=== PATIENT | female | born 1975 ===

== ENCOUNTER 2020-06-18 20:26 | Inpatient (IN) ==
[2020-06-18] MEDS ORDERED: SODIUM CHLORIDE 0.9% 1,000 ML IV STA (20:54)
[2020-06-18] MEDS ORDERED: PANTOPRAZOLE INJ 80 MG in SODIUM CHLORIDE 0.9% 100 ML IV ONE (20:54)
[2020-06-18] MEDS ORDERED: ONDANSETRON 4 MG/2 ML VIAL IV STA (20:54)
[2020-06-18 21:01] LABS: Basophils % 0.5 % (0.0-0.8); Eosinophils # 0.1 10*3/uL (0.0-0.87); Eosinophils % 2.4 % (0.00-10.9); Hematocrit 28.5 VOL% (35.7-47.0); Hemoglobin 10.2 GM/DL (12.0-16.0); Immature Granulocytes % 0.3 %; Immature Granulocytes Absolute 0.01 #; Lymphocytes # 1.9 10*3/uL (1.4-4.0); Lymphocytes % 50.3 % (21.3-54.2); Mean Corpuscular HGB Conc 35.8 GM/DL (32-36); Mean Corpuscular Volume 101.1 FL (87-102); Mean Platelet Volume 10.5 FL (9.6-12.0); Monocytes % 11.1 % (1.7-12.7); Neutrophils % 35.4 % (38.7-73.9); Platelet Count 49 T/CUMM (130-400); Red Blood Count 2.82 MC/CUMM (3.8-5.5); Red Cell Distribution Width 12.9 % (9.3-17.3); White Blood Count 3.7 T/CUMM (4-12)
[2020-06-18] MEDS ORDERED: THIAMINE INJ 100 MG, FOLIC ACID INJ 1 MG, MAGNESIUM SULF INJ 2 GM, MULTIVITAMIN INJ 10 ... IV ONE (21:02)
[2020-06-18 21:08] LABS: INR 1.4; PT Patient Result 15.2 SECS (9.8-11.9); Partial Thromboplastin Time 38.5 SECS (23.9-33.8)
[2020-06-18 21:17] LABS: Albumin 2.3 G/DL (3.4-5.0); Bilirubin,Total 1.9 MG/DL (0.2-1.0); Osmolality,Calculated 244.1 MOS/KG (273-304); Total Protein 6.5 G/DL (6.4-8.3)
[2020-06-18 21:26] LABS: Eosinophils 1 % (0-10); Lymphocytes 44 % (20-55); Microcytosis 1+; Platelet Estimate Decreased; Segmented Neutrophils 49 % (50-85); Total Cells Counted 100
[2020-06-18] MEDS ORDERED: PANTOPRAZOLE 40 MG VIAL IV ONE ×2 (21:39→21:42)
[2020-06-18] MEDS ORDERED: PANTOPRAZOLE INJ 200 MG in SODIUM CHLORIDE 0.9% 250 ML IV SCH (22:00)
[2020-06-18] MEDS ORDERED: OCTREOTIDE 100 MCG/ML SYRINGE IV STA (23:33)
[2020-06-18] MEDS ORDERED: PROMETHAZINE 25 MG/1 ML VIAL IM PRN (23:33)
[2020-06-18] MEDS ORDERED: ONDANSETRON 4 MG/2 ML VIAL IV PRN (23:33)
[2020-06-18] MEDS ORDERED: ALBUTEROL 2.5 MG/3 ML NEB RESP TX PRN (23:33)
[2020-06-18] MEDS ORDERED: THIAMINE INJ 100 MG, FOLIC ACID INJ 1 MG, MAGNESIUM SULF INJ 2 GM, MULTIVITAMIN INJ 10 ... IV SCH (23:45)
[2020-06-18] MEDS ORDERED: SODIUM CHLORIDE 0.9% 1,000 ML IV SCH (23:45)
[2020-06-19 00:03] LABS: Apearance,Urine CLEAR (Clear); Bacteria,Urine Moderate /HPF (Few); Bilirubin,Urine Negative (Negative); Blood, Urine Small mg/dL (Negative); Glucose,Urine (UA) Negative (Negative); Ketones,Urine Negative (Negative); Mucus,Urine Occasional /LPF (Occasional); Nitrite,Urine Negative (Negative); Protein,Urine Negative; RBC,Urine 2 /HPF (0-4); Squamous Epithelial Cell,Urine Occasional /HPF (0-10); Urine Color Yellow (Yellow); Urine Specific Gravity 1.003 (1.001-1.035); WBC,Urine 1 /HPF (0-6)
[2020-06-19] MEDS ORDERED: SODIUM CHLORIDE 0.9% 1,000 ML IV STA (00:54)
[2020-06-19] MEDS ORDERED: SODIUM CHLORIDE 0.9% 1,000 ML IV PRN ×2 (01:02→02:31)
[2020-06-19] MEDS: OCTREOTIDE 500 MCG in SODIUM CHLORIDE 0.9% 100 ML IV SCH ×3 (01:54→21:28)
[2020-06-19 02:31] LABS: Basophils % 0.7 % (0.0-0.8); Eosinophils # 0.1 10*3/uL (0.0-0.87); Eosinophils % 2.5 % (0.00-10.9); Hemoglobin 10.9 GM/DL (12.0-16.0); Immature Granulocytes % 0.4 %; Immature Granulocytes Absolute 0.01 #; Lymphocytes # 1.2 10*3/uL (1.4-4.0); Lymphocytes % 44.6 % (21.3-54.2); Mean Corpuscular HGB Conc 35.2 GM/DL (32-36); Mean Corpuscular Volume 102.3 FL (87-102); Mean Platelet Volume 9.9 FL (9.6-12.0); Monocytes % 14.5 % (1.7-12.7); Neutrophils % 37.3 % (38.7-73.9); Red Blood Count 3.03 MC/CUMM (3.8-5.5); Red Cell Distribution Width 12.8 % (9.3-17.3); White Blood Count 2.8 T/CUMM (4-12)
[2020-06-19 02:34] LABS: Platelet Count 42 T/CUMM (130-400)
[2020-06-19] MEDS: LACTATED RINGERS 1,000 ML IV SCH ×2 (02:45→12:28)
[2020-06-19 06:01] LABS: Anisocytosis 2+; Band Neutrophils 4 % (0-10); Eosinophils 3 % (0-10); Lymphocytes 47 % (20-55); Macrocytosis 2+; Platelet Estimate Decreased; Segmented Neutrophils 32 % (50-85); Total Cells Counted 100
[2020-06-19 06:20] LABS: Basophils % 0.4 % (0.0-0.8); Eosinophils % 1.7 % (0.00-10.9); Hematocrit 27.4 VOL% (35.7-47.0); Hemoglobin 9.5 GM/DL (12.0-16.0); Lymphocytes # 0.8 10*3/uL (1.4-4.0); Lymphocytes % 35.3 % (21.3-54.2); Mean Corpuscular HGB Conc 34.7 GM/DL (32-36); Mean Corpuscular Volume 103.4 FL (87-102); Mean Platelet Volume 9.9 FL (9.6-12.0); Monocytes % 11.1 % (1.7-12.7); Neutrophils % 51.5 % (38.7-73.9); Red Blood Count 2.65 MC/CUMM (3.8-5.5); Red Cell Distribution Width 13.3 % (9.3-17.3); White Blood Count 2.4 T/CUMM (4-12)
[2020-06-19 06:24] LABS: Platelet Count 97 T/CUMM (130-400)
[2020-06-19] MEDS: FOLIC ACID IV SCH ×3 (06:59→21:27)
[2020-06-19] MEDS: [UNRECOGNIZED DRUG - OTHER] IV SCH ×3 (06:59→21:27)
[2020-06-19] MEDS: MAGNESIUM IV SCH ×3 (06:59→21:27)
[2020-06-19] MEDS: THIAMINE 100 MG IV SCH ×3 (06:59→21:27)
[2020-06-19 09:17] LABS: INR 1.3; PT Patient Result 13.6 SECS (9.8-11.9)
[2020-06-19 09:29] LABS: Albumin 2.5 G/DL (3.4-5.0); Bilirubin,Total 2.4 MG/DL (0.2-1.0); Calcium 7.4 MG/DL (8.5-10.1)
[2020-06-19] MEDS: PANTOPRAZOLE 40 MG VIAL IV SCH ×2 (09:40→20:15)
[2020-06-19 15:45] LABS: Hepatitis B Core IgM Quant 0.15 Index; Hepatitis B Surface Ag Quant < 0.10 Index; Hepatitis B Surface Ag Result Negative (Negative); Hepatitis C Virus Ab Quant 0.19 Index; Hepatitis C Virus Ab Result Negative (Negative)
[2020-06-19] MEDS: LORazepam 2 MG/1 ML VIAL IV SCH ×2 (17:36→23:27)
[2020-06-19] MEDS: DEXTROSE 5% NACL 0.45% 1,000 ML IV SCH (17:38)
[2020-06-20 05:12] LABS: Basophils % 0.4 % (0.0-0.8); Eosinophils % 1.2 % (0.00-10.9); Hematocrit 25.7 VOL% (35.7-47.0); Hemoglobin 8.5 GM/DL (12.0-16.0); Immature Granulocytes % 0.4 %; Immature Granulocytes Absolute 0.01 #; Lymphocytes % 38.9 % (21.3-54.2); Mean Corpuscular HGB Conc 33.1 GM/DL (32-36); Mean Platelet Volume 9.8 FL (9.6-12.0); Monocytes % 19.4 % (1.7-12.7); Neutrophils % 39.7 % (38.7-73.9); Platelet Count 63 T/CUMM (130-400); Red Blood Count 2.38 MC/CUMM (3.8-5.5); White Blood Count 2.5 T/CUMM (4-12)
[2020-06-20 05:30] LABS: Band Neutrophils 1 % (0-10); Lymphocytes 36 % (20-55); Segmented Neutrophils 48 % (50-85); Total Cells Counted 100
[2020-06-20 05:31] LABS: Hypochromasia 1+; Macrocytosis 1+; Platelet Estimate Decreased
[2020-06-20 05:33] LABS: Calcium 7.3 MG/DL (8.5-10.1); Osmolality,Calculated 272.8 MOS/KG (273-304)
[2020-06-20] MEDS: LORazepam 2 MG/1 ML VIAL IV SCH ×3 (05:57→17:15)
[2020-06-20] MEDS: DEXTROSE 5% NACL 0.45% 1,000 ML IV SCH (06:19)
[2020-06-20] MEDS: PANTOPRAZOLE 40 MG VIAL IV SCH ×2 (09:49→21:31)
[2020-06-20] MEDS: FOLIC ACID IV SCH ×2 (09:54→16:42)
[2020-06-20] MEDS: THIAMINE 100 MG IV SCH ×2 (09:54→16:42)
[2020-06-20] MEDS: [UNRECOGNIZED DRUG - OTHER] IV SCH ×2 (09:54→16:42)
[2020-06-20] MEDS: MAGNESIUM IV SCH ×2 (09:54→16:42)
[2020-06-20] MEDS ORDERED: propofoL 200 MG/20 ML VIAL IV ONE (10:00)
[2020-06-20] MEDS ORDERED: LIDOCAINE 2% 5 ML VIAL ONE (10:00)
[2020-06-20] MEDS: OCTREOTIDE 500 MCG in SODIUM CHLORIDE 0.9% 100 ML IV SCH (12:06)
[2020-06-20] MEDS: PIPERACILLIN/TAZOBACTAM 3,375 MG in SODIUM CHLORIDE 0.9% 100 ML IV SCH ×2 (14:25→21:33)
[2020-06-21] MEDS ORDERED: SODIUM CHLORIDE 0.9% 500 ML IV ONE (00:58)
[2020-06-21] MEDS: THIAMINE 100 MG IV SCH ×2 (02:02→10:13)
[2020-06-21] MEDS: FOLIC ACID IV SCH ×2 (02:02→10:13)
[2020-06-21] MEDS: MAGNESIUM IV SCH ×2 (02:02→10:13)
[2020-06-21] MEDS: [UNRECOGNIZED DRUG - OTHER] IV SCH ×2 (02:02→10:13)
[2020-06-21] MEDS: LORazepam 2 MG/1 ML VIAL IV SCH ×4 (02:24→18:03)
[2020-06-21 05:57] LABS: Basophils % 0.4 % (0.0-0.8); Eosinophils % 1.3 % (0.00-10.9); Hematocrit 22.4 VOL% (35.7-47.0); Hemoglobin 7.7 GM/DL (12.0-16.0); Immature Granulocytes % 0.4 %; Immature Granulocytes Absolute 0.01 #; Lymphocytes # 0.8 10*3/uL (1.4-4.0); Lymphocytes % 33.3 % (21.3-54.2); Mean Corpuscular HGB Conc 34.4 GM/DL (32-36); Mean Corpuscular Volume 106.7 FL (87-102); Mean Platelet Volume 10.5 FL (9.6-12.0); Monocytes % 18.6 % (1.7-12.7); Platelet Count 44 T/CUMM (130-400); Red Cell Distribution Width 13.5 % (9.3-17.3); White Blood Count 2.3 T/CUMM (4-12)
[2020-06-21] MEDS ORDERED: SODIUM CHLORIDE 0.9% 1,000 ML IV PRN (06:26)
[2020-06-21 06:29] LABS: Eosinophils 1 % (0-10); Hypochromasia 2+; Lymphocytes 21 % (20-55); Ovalocytes Slight; Platelet Estimate Decreased; Segmented Neutrophils 68 % (50-85); Total Cells Counted 100
[2020-06-21 06:30] LABS: Macrocytosis Slight; Osmolality,Calculated 284.7 MOS/KG (273-304)
[2020-06-21 06:35] LABS: Calcium 5.1 MG/DL (8.5-10.1)
[2020-06-21 09:12] LABS: Albumin 1.4 G/DL (3.4-5.0); Bilirubin,Direct 1.03 MG/DL (0.0-0.20); Bilirubin,Indirect 0.6 MG/DL (0.0-1.0); Bilirubin,Total 1.6 MG/DL (0.2-1.0); Total Protein 3.9 G/DL (6.4-8.3)
[2020-06-21] MEDS: PANTOPRAZOLE 40 MG VIAL IV SCH (10:07)
[2020-06-21] MEDS: PIPERACILLIN/TAZOBACTAM 3,375 MG in SODIUM CHLORIDE 0.9% 100 ML IV SCH ×3 (10:11→21:51)
[2020-06-21] MEDS ORDERED: POTASSIUM CHLORIDE 20 MEQ TABLET PO ONE (12:00)
[2020-06-21] MEDS ORDERED: FAMOTIDINE INJ 40 MG in SODIUM CHLORIDE 0.9% 100 ML IV SCH (13:30)
[2020-06-21] MEDS ORDERED: CALCIUM GLUCONATE 2,000 MG in SODIUM CHLORIDE 0.9% 100 ML IV ONE (13:30)
[2020-06-21] MEDS: CALCIUM (CARBONATE)/VITAMIN D 500 MG-200 UNIT TABLET PO SCH ×3 (13:46→21:50)
[2020-06-21] MEDS: DEXTROSE 5% NACL 0.45% 1,000 ML IV SCH (15:36)
[2020-06-21] MEDS ORDERED: POTASSIUM CHLORIDE 20 MEQ TABLET PO SCH (21:00)
[2020-06-21] MEDS ORDERED: PANTOPRAZOLE 40 MG TABLET PO SCH (21:00)
[2020-06-21] MEDS: FAMOTIDINE 20 MG TABLET PO SCH (21:50)
[2020-06-21] MEDS: POTASSIUM CHLORIDE 20 MEQ TABLET PO SCH (21:51)
[2020-06-22] MEDS: LORazepam 2 MG/1 ML VIAL IV SCH ×4 (03:45→16:52)
[2020-06-22] MEDS: [UNRECOGNIZED DRUG - OTHER] IV SCH ×3 (03:47→13:49)
[2020-06-22] MEDS: FOLIC ACID IV SCH ×3 (03:47→13:49)
[2020-06-22] MEDS: MAGNESIUM IV SCH ×3 (03:47→13:49)
[2020-06-22] MEDS: THIAMINE 100 MG IV SCH ×3 (03:47→13:49)
[2020-06-22] MEDS: PIPERACILLIN/TAZOBACTAM 3,375 MG in SODIUM CHLORIDE 0.9% 100 ML IV SCH ×2 (06:23→15:39)
[2020-06-22 06:38] LABS: Basophils % 1.3 % (0.0-0.8); Eosinophils # 0.1 10*3/uL (0.0-0.87); Eosinophils % 4.7 % (0.00-10.9); Hematocrit 37.1 VOL% (35.7-47.0); Hemoglobin 12.8 GM/DL (12.0-16.0); Mean Corpuscular HGB Conc 34.5 GM/DL (32-36); Mean Corpuscular Volume 99.2 FL (87-102); Mean Platelet Volume 10.6 FL (9.6-12.0); Monocytes % 15.8 % (1.7-12.7); Neutrophils % 45.2 % (38.7-73.9); Platelet Count 46 T/CUMM (130-400); Red Blood Count 3.74 MC/CUMM (3.8-5.5); Red Cell Distribution Width 16.9 % (9.3-17.3)
[2020-06-22 07:08] LABS: Calcium 8.6 MG/DL (8.5-10.1); Osmolality,Calculated 267.2 MOS/KG (273-304)
[2020-06-22 07:11] LABS: Ferritin 881.4 ng/ml (8-252)
[2020-06-22 07:18] LABS: Eosinophils 12 % (0-10); Lymphocytes 29 % (20-55); Platelet Estimate Decreased; Segmented Neutrophils 49 % (50-85); Total Cells Counted 100
[2020-06-22 07:18] LABS: Folate 12.9 NG/ML (5.4-24.0)
[2020-06-22 07:19] LABS: Hypochromasia 1+; Microcytosis Slight
[2020-06-22] MEDS: CALCIUM (CARBONATE)/VITAMIN D 500 MG-200 UNIT TABLET PO SCH ×3 (08:31→17:28)
[2020-06-22] MEDS: FAMOTIDINE 20 MG TABLET PO SCH (08:31)
[2020-06-22] MEDS: POTASSIUM CHLORIDE 20 MEQ TABLET PO SCH (08:31)
[2020-06-22 16:17] VITALS: BP 105/68
== END 2020-06-22 19:03 | disposition home or self-care (01) | DRG 253 ==
LOC: EDUNIT# → EDBD → N.ED 20:26 → SUATTDRO 23:33 → N.EDINP 23:33 → N.3E 06-19 11:21 → N.4E 06-21 15:30 → UNDODISIN 06-22 18:37
PROVIDERS: ADMIT Internal Medicine; ATTEND Hospitalist

== ENCOUNTER 2021-04-11 20:45 | Inpatient (IN) ==
[2021-04-12] MEDS ORDERED: GLUCAGON 1 MG VIAL IM PRN ×2 (00:02→01:00)
[2021-04-12] MEDS ORDERED: DEXTROSE 50% 25 GM/50 ML VIAL IV PRN ×2 (00:02→01:00)
[2021-04-12] MEDS ORDERED: cefTRIAXone 1,000 MG in SODIUM CHLORIDE 0.9% 100 ML IV SCH (01:00)
[2021-04-12 02:04] LABS: Albumin 2.1 G/DL (3.4-5.0); Bilirubin,Total 3.2 MG/DL (0.2-1.0); Calcium 7.4 MG/DL (8.5-10.1); Osmolality,Calculated 277.5 MOS/KG (273-304); Potassium 3.7 MMOL/L (3.5-5.1); Total Protein 6.3 G/DL (6.4-8.2)
[2021-04-12 02:09] LABS: Basophils % 0.6 % (0.0-0.8); Eosinophils # 0.1 10*3/uL (0.0-0.87); Eosinophils % 2.1 % (0.00-10.9); Hematocrit 29.8 VOL% (35.7-47.0); Immature Granulocytes % 0.3 %; Immature Granulocytes Absolute 0.01 #; Lymphocytes # 0.9 10*3/uL (1.4-4.0); Lymphocytes % 25.1 % (21.3-54.2); Mean Corpuscular HGB Conc 33.6 GM/DL (32-36); Mean Corpuscular Volume 109.2 FL (87-102); Mean Platelet Volume 10.3 FL (9.6-12.0); Monocytes % 11.5 % (1.7-12.7); Neutrophils % 60.4 % (38.7-73.9); Platelet Count 41 T/CUMM (130-400); Red Blood Count 2.73 MC/CUMM (3.8-5.5); Red Cell Distribution Width 15.8 % (9.3-17.3); White Blood Count 3.4 T/CUMM (4-12)
[2021-04-12 02:15] LABS: INR 1.4; PT Patient Result 15.6 SECS (10.5-12.0); Partial Thromboplastin Time 31.2 SECS (23.9-33.8)
[2021-04-12] MEDS: INSULIN LISPRO 100 UNIT/ML SUBCUT SCH ×4 (08:39→23:18)
[2021-04-12] MEDS ORDERED: PNEUMOCOCCAL VACCINE (23 VALENT) 0.5 ML VIAL IM ONE (09:00)
[2021-04-12] MEDS: PANTOPRAZOLE 40 MG TABLET PO SCH (10:39)
[2021-04-12] MEDS: LACTULOSE 20 GM/30 ML UDCUP PO SCH (10:39)
[2021-04-12] MEDS: ACETAMINOPHEN 325 MG TABLET PO SCH ×3 (10:40→20:56)
[2021-04-12] MEDS: MIDODRINE 5 MG TABLET PO SCH ×3 (10:40→20:56)
[2021-04-12] MEDS: FOLIC ACID 1 MG TABLET PO SCH (10:40)
[2021-04-12] MEDS: POTASSIUM CHLORIDE 20 MEQ TABLET PO SCH (10:41)
[2021-04-12] MEDS: FUROSEMIDE 40 MG TABLET PO SCH (10:41)
[2021-04-12] MEDS: THIAMINE 100 MG TABLET PO SCH (10:41)
[2021-04-12] MEDS: ONDANSETRON 4 MG/2 ML VIAL IV PRN (13:06)
[2021-04-12] MEDS: cefTRIAXone 1,000 MG in SODIUM CHLORIDE 0.9% 100 ML IV SCH (20:56)
[2021-04-13 09:07] LABS: Basophils % 0.7 % (0.0-0.8); Eosinophils # 0.1 10*3/uL (0.0-0.87); Eosinophils % 2.5 % (0.00-10.9); Lymphocytes % 25.5 % (21.3-54.2); Mean Corpuscular HGB Conc 33.3 GM/DL (32-36); Mean Corpuscular Volume 108.7 FL (87-102); Mean Platelet Volume 10.8 FL (9.6-12.0); Monocytes % 11.3 % (1.7-12.7); Platelet Count 40 T/CUMM (130-400); Red Blood Count 2.76 MC/CUMM (3.8-5.5); Red Cell Distribution Width 15.9 % (9.3-17.3); White Blood Count 4.1 T/CUMM (4-12)
[2021-04-13 09:25] LABS: Albumin 1.9 G/DL (3.4-5.0); Bilirubin,Total 2.1 MG/DL (0.2-1.0); Calcium 7.6 MG/DL (8.5-10.1); Eosinophils 5 % (0-10); Hypochromasia Slight; Lymphocytes 31 % (20-55); Microcytosis Slight; Nucleated Red Blood Cells 1 (0-5); Osmolality,Calculated 282.1 MOS/KG (273-304); Platelet Estimate Decreased; Potassium 3.5 MMOL/L (3.5-5.1); Segmented Neutrophils 59 % (50-85); Total Cells Counted 100; Total Protein 5.9 G/DL (6.4-8.2)
[2021-04-13 09:27] LABS: INR 1.5; Partial Thromboplastin Time 32.1 SECS (23.9-33.8)
[2021-04-13] MEDS: THIAMINE 100 MG TABLET PO SCH (11:15)
[2021-04-13] MEDS: PANTOPRAZOLE 40 MG TABLET PO SCH (11:15)
[2021-04-13] MEDS: MIDODRINE 5 MG TABLET PO SCH ×3 (11:15→20:16)
[2021-04-13] MEDS: FUROSEMIDE 40 MG TABLET PO SCH (11:15)
[2021-04-13] MEDS: LACTULOSE 20 GM/30 ML UDCUP PO SCH (11:16)
[2021-04-13] MEDS: ACETAMINOPHEN 325 MG TABLET PO SCH ×3 (11:16→20:16)
[2021-04-13] MEDS: FOLIC ACID 1 MG TABLET PO SCH (11:16)
[2021-04-13] MEDS: POTASSIUM CHLORIDE 20 MEQ TABLET PO SCH (11:16)
[2021-04-13] MEDS: INSULIN LISPRO 100 UNIT/ML SUBCUT SCH ×4 (11:17→21:16)
[2021-04-13] MEDS: PHYTONADIONE 5 MG/5 ML ORAL.SYR PO SCH (17:04)
[2021-04-13 17:30] LABS: Neutrophils,Peritoneal Fluid 14 %; RBC,Peritoneal Fluid < 1 T/CUMM
[2021-04-13] MEDS: cefTRIAXone 1,000 MG in SODIUM CHLORIDE 0.9% 100 ML IV SCH (20:16)
[2021-04-13] MEDS: SPIRONOLACTONE 50 MG TABLET PO SCH (21:16)
[2021-04-14 05:18] LABS: Basophils % 0.6 % (0.0-0.8); Eosinophils # 0.1 10*3/uL (0.0-0.87); Eosinophils % 2.8 % (0.00-10.9); Hematocrit 26.9 VOL% (35.7-47.0); Hemoglobin 9.2 GM/DL (12.0-16.0); Immature Granulocytes % 0.3 %; Immature Granulocytes Absolute 0.01 #; Lymphocytes # 1.1 10*3/uL (1.4-4.0); Mean Corpuscular HGB Conc 34.2 GM/DL (32-36); Mean Corpuscular Volume 107.2 FL (87-102); Mean Platelet Volume 10.5 FL (9.6-12.0); Monocytes % 12.5 % (1.7-12.7); Neutrophils % 53.8 % (38.7-73.9); Red Blood Count 2.51 MC/CUMM (3.8-5.5); Red Cell Distribution Width 15.8 % (9.3-17.3); White Blood Count 3.6 T/CUMM (4-12)
[2021-04-14 05:21] LABS: INR 1.5; PT Patient Result 16.9 SECS (10.5-12.0); Partial Thromboplastin Time 34.2 SECS (23.9-33.8)
[2021-04-14 05:31] LABS: Platelet Count 32 T/CUMM (130-400)
[2021-04-14 05:45] LABS: Albumin 1.9 G/DL (3.4-5.0); Bilirubin,Total 1.9 MG/DL (0.2-1.0); Calcium 7.4 MG/DL (8.5-10.1); Potassium 3.3 MMOL/L (3.5-5.1); Total Protein 5.5 G/DL (6.4-8.2)
[2021-04-14 05:46] LABS: Eosinophils 3 % (0-10); Hypochromasia 1+; Lymphocytes 27 % (20-55); Microcytosis 1+; Platelet Estimate Decreased; Segmented Neutrophils 65 % (50-85); Total Cells Counted 100
[2021-04-14] MEDS: PHYTONADIONE 5 MG/5 ML ORAL.SYR PO SCH (09:18)
[2021-04-14] MEDS: LACTULOSE 20 GM/30 ML UDCUP PO SCH (09:18)
[2021-04-14] MEDS: MIDODRINE 5 MG TABLET PO SCH ×3 (09:19→22:48)
[2021-04-14] MEDS: PANTOPRAZOLE 40 MG TABLET PO SCH (09:19)
[2021-04-14] MEDS: ACETAMINOPHEN 325 MG TABLET PO SCH ×3 (09:19→22:52)
[2021-04-14] MEDS: THIAMINE 100 MG TABLET PO SCH (09:19)
[2021-04-14] MEDS: SPIRONOLACTONE 50 MG TABLET PO SCH ×2 (09:19→22:48)
[2021-04-14] MEDS: POTASSIUM CHLORIDE 20 MEQ TABLET PO SCH (09:19)
[2021-04-14] MEDS: FUROSEMIDE 20 MG TABLET PO SCH (09:19)
[2021-04-14] MEDS: FOLIC ACID 1 MG TABLET PO SCH (09:19)
[2021-04-14] MEDS ORDERED: SODIUM CHLORIDE 0.9% 1,000 ML IV PRN (09:46)
[2021-04-14] MEDS: ONDANSETRON 4 MG/2 ML VIAL IV PRN (10:16)
[2021-04-14] MEDS: INSULIN LISPRO 100 UNIT/ML SUBCUT SCH ×4 (10:24→22:48)
[2021-04-14] MEDS ORDERED: diphenhydrAMINE CAP 25 MG CAPSULE PO ONE (13:25)
[2021-04-15 06:17] LABS: Basophils % 0.7 % (0.0-0.8); Eosinophils # 0.1 10*3/uL (0.0-0.87); Hematocrit 28.2 VOL% (35.7-47.0); Hemoglobin 9.6 GM/DL (12.0-16.0); Immature Granulocytes % 0.3 %; Immature Granulocytes Absolute 0.01 #; Mean Corpuscular Volume 109.3 FL (87-102); Mean Platelet Volume 10.4 FL (9.6-12.0); Monocytes % 11.3 % (1.7-12.7); Neutrophils % 52.7 % (38.7-73.9); Red Blood Count 2.58 MC/CUMM (3.8-5.5); Red Cell Distribution Width 15.7 % (9.3-17.3)
[2021-04-15 06:21] LABS: INR 1.5; PT Patient Result 16.1 SECS (10.5-12.0)
[2021-04-15 06:26] LABS: Platelet Count 37 T/CUMM (130-400)
[2021-04-15 06:44] LABS: Albumin 1.9 G/DL (3.4-5.0); Bilirubin,Total 1.4 MG/DL (0.2-1.0); Calcium 7.8 MG/DL (8.5-10.1); Osmolality,Calculated 282.1 MOS/KG (273-304); Potassium 3.5 MMOL/L (3.5-5.1); Total Protein 5.6 G/DL (6.4-8.2)
[2021-04-15] MEDS: INSULIN LISPRO 100 UNIT/ML SUBCUT SCH ×4 (07:29→22:28)
[2021-04-15 08:11] LABS: Macrocytosis 2+; Platelet Estimate Decreased; Polychromasia Slight
[2021-04-15] MEDS: ACETAMINOPHEN 325 MG TABLET PO SCH ×3 (08:37→22:26)
[2021-04-15] MEDS: THIAMINE 100 MG TABLET PO SCH (08:37)
[2021-04-15] MEDS: POTASSIUM CHLORIDE 20 MEQ TABLET PO SCH (08:37)
[2021-04-15] MEDS: PANTOPRAZOLE 40 MG TABLET PO SCH (08:37)
[2021-04-15] MEDS: FOLIC ACID 1 MG TABLET PO SCH (08:37)
[2021-04-15] MEDS: FUROSEMIDE 20 MG TABLET PO SCH (08:37)
[2021-04-15] MEDS: PHYTONADIONE 5 MG/5 ML ORAL.SYR PO SCH (08:37)
[2021-04-15] MEDS: LACTULOSE 20 GM/30 ML UDCUP PO SCH (08:38)
[2021-04-15] MEDS: SPIRONOLACTONE 50 MG TABLET PO SCH (08:38)
[2021-04-15] MEDS: MIDODRINE 5 MG TABLET PO SCH ×3 (08:38→22:27)
[2021-04-15] MEDS ORDERED: FLUCONAZOLE 150 MG TABLET PO ONE (13:34)
[2021-04-15] MEDS: SPIRONOLACTONE 25 MG TABLET PO SCH (22:27)
[2021-04-16] MEDS: MIDODRINE 5 MG TABLET PO SCH (08:55)
[2021-04-16] MEDS: INSULIN LISPRO 100 UNIT/ML SUBCUT SCH ×2 (08:55→11:49)
[2021-04-16] MEDS: PANTOPRAZOLE 40 MG TABLET PO SCH (08:56)
[2021-04-16] MEDS: SPIRONOLACTONE 25 MG TABLET PO SCH (08:56)
[2021-04-16] MEDS: THIAMINE 100 MG TABLET PO SCH (08:56)
[2021-04-16] MEDS: FUROSEMIDE 20 MG TABLET PO SCH (08:56)
[2021-04-16] MEDS: ACETAMINOPHEN 325 MG TABLET PO SCH (08:56)
[2021-04-16] MEDS: POTASSIUM CHLORIDE 20 MEQ TABLET PO SCH (08:56)
[2021-04-16] MEDS: LACTULOSE 20 GM/30 ML UDCUP PO SCH (08:56)
[2021-04-16] MEDS: FOLIC ACID 1 MG TABLET PO SCH (08:56)
[2021-04-16 12:22] VITALS: BP 108/57
== END 2021-04-16 15:25 | disposition home or self-care (01) | DRG 280 ==
LOC: N.5E 22:43 → SUATTDRO 22:43
PROVIDERS: ADMIT Internal Medicine; ATTEND Internal Medicine